=== PATIENT | male | born 1980 | race African-American/Black ===

== ENCOUNTER 2017-10-07 14:23 | Inpatient (IN) ==
[2017-10-07 15:34] LABS: Apearance,Urine CLEAR (Clear); Bilirubin,Urine Negative (Negative); Blood, Urine Negative (Negative); Glucose,Urine (UA) Negative (Negative); Ketones,Urine 5 mg/dL (Negative); Mucus,Urine Occasional /LPF (Occasional); Nitrite,Urine Negative (Negative); Protein,Urine Negative; RBC,Urine 1 /HPF (0-4); Squamous Epithelial Cell,Urine Occasional /HPF (0-10); Urine Color Yellow (Yellow); Urine Specific Gravity 1.012 (1.001-1.035); Urine Urobilinogen < 2.0 EU/DL (0.2-1.0); WBC,Urine 51 /HPF (0-6)
[2017-10-07 16:51] LABS: Basophils % 0.1 % (0.0-0.8); Eosinophils % 0.1 % (0.00-10.9); Hematocrit 43.8 VOL% (42.0-52.0); Hemoglobin 14.9 GM/DL (14.0-18.0); Immature Granulocytes % 0.3 %; Immature Granulocytes Absolute 0.03 #; Lymphocytes # 1.2 10*3/uL (1.4-4.0); Lymphocytes % 12.3 % (21.2-54.2); Mean Corpuscular Hemoglobin 31 PG (27-34); Mean Corpuscular Volume 92.2 FL (87-102); Mean Platelet Volume 10.7 FL (9.6-12.0); Monocytes # 0.9 10*3/uL (0.11-0.8); Monocytes % 8.6 % (1.7-12.7); Neutrophils # 7.8 10*3/uL (1.4-7.4); Neutrophils % 78.6 % (38.7-73.9); Platelet Count 250 T/CUMM (130-400); Red Blood Count 4.75 MC/CUMM (3.8-5.5); Red Cell Distribution Width 15.1 % (9.3-17.3); White Blood Count 9.9 T/CUMM (4-12)
[2017-10-07 17:15] LABS: Albumin 3.8 G/DL (3.4-5.0); Bilirubin,Total 0.6 MG/DL (0.2-1.0); Lactic Acid 1.2 MMOL/L (0.4-2.0); Osmolality,Calculated 273.7 MOS/KG (273-304); Potassium 4.7 MMOL/L (3.5-5.1); Total Protein 8.1 G/DL (6.4-8.3)
[2017-10-07] MEDS ORDERED: cefTRIAXone 1,000 MG in SODIUM CHLORIDE 0.9% 100 ML IV STA (17:31)
[2017-10-07] MEDS ORDERED: MORPHINE 4 MG/1 ML VIAL IV STA (20:00)
[2017-10-07] MEDS ORDERED: ONDANSETRON 4 MG/2 ML VIAL IV PRN (20:51)
[2017-10-07] MEDS ORDERED: PROMETHAZINE 25 MG/1 ML VIAL IM PRN (20:51)
[2017-10-07] MEDS ORDERED: MORPHINE 4 MG/1 ML VIAL IV PRN (20:51)
[2017-10-07] MEDS: ENOXAPARIN 40 MG/0.4 ML SYRINGE SUBCUT SCH (21:46)
[2017-10-07] MEDS: SODIUM CHLORIDE 0.9% 1,000 ML IV SCH (21:46)
[2017-10-07] MEDS: metroNIDAZOLE INJ 500 MG in PREMIX 1 EACH IV SCH (21:46)
[2017-10-07] MEDS: METOPROLOL TARTRATE 50 MG TABLET PO SCH (21:47)
[2017-10-07] MEDS: ROSUVASTATIN 20 MG TABLET PO SCH (21:47)
[2017-10-08] MEDS: metroNIDAZOLE INJ 500 MG in PREMIX 1 EACH IV SCH ×3 (04:56→21:55)
[2017-10-08 06:00] LABS: Basophils % 0.2 % (0.0-0.8); Hematocrit 39.2 VOL% (42.0-52.0); Hemoglobin 13.9 GM/DL (14.0-18.0); Immature Granulocytes % 0.4 %; Immature Granulocytes Absolute 0.04 #; Lymphocytes # 1.7 10*3/uL (1.4-4.0); Lymphocytes % 15.7 % (21.2-54.2); Mean Corpuscular HGB Conc 35.5 GM/DL (32-36); Mean Corpuscular Hemoglobin 32 PG (27-34); Mean Corpuscular Volume 90.7 FL (87-102); Mean Platelet Volume 11.5 FL (9.6-12.0); Monocytes # 0.9 10*3/uL (0.11-0.8); Monocytes % 8.5 % (1.7-12.7); Neutrophils # 8.3 10*3/uL (1.4-7.4); Neutrophils % 75.2 % (38.7-73.9); Platelet Count 232 T/CUMM (130-400); Red Blood Count 4.32 MC/CUMM (3.8-5.5); Red Cell Distribution Width 14.9 % (9.3-17.3)
[2017-10-08] MEDS: CLOPIDOGREL 75 MG TABLET PO SCH (09:51)
[2017-10-08] MEDS: PANTOPRAZOLE 40 MG TABLET PO SCH (09:51)
[2017-10-08] MEDS: ASPIRIN EC 81 MG TABLET PO SCH (09:51)
[2017-10-08] MEDS: METOPROLOL TARTRATE 50 MG TABLET PO SCH ×2 (09:51→20:53)
[2017-10-08] MEDS: CIPROFLOXACIN INJ 400 MG in PREMIX 1 EACH IV SCH ×2 (09:51→20:53)
[2017-10-08] MEDS: LOSARTAN 25 MG TABLET PO SCH (09:51)
[2017-10-08] MEDS: SODIUM CHLORIDE 0.9% 1,000 ML IV SCH ×3 (09:52→20:19)
[2017-10-08] MEDS: ENOXAPARIN 40 MG/0.4 ML SYRINGE SUBCUT SCH (20:52)
[2017-10-08] MEDS: ROSUVASTATIN 20 MG TABLET PO SCH (20:53)
[2017-10-09] MEDS: SODIUM CHLORIDE 0.9% 1,000 ML IV SCH ×3 (01:35→15:56)
[2017-10-09] MEDS: metroNIDAZOLE INJ 500 MG in PREMIX 1 EACH IV SCH ×3 (04:44→23:01)
[2017-10-09 07:13] LABS: Basophils % 0.2 % (0.0-0.8); Eosinophils % 0.3 % (0.00-10.9); Hematocrit 36.2 VOL% (42.0-52.0); Hemoglobin 12.4 GM/DL (14.0-18.0); Immature Granulocytes % 0.2 %; Immature Granulocytes Absolute 0.01 #; Lymphocytes # 1.2 10*3/uL (1.4-4.0); Lymphocytes % 19.7 % (21.2-54.2); Mean Corpuscular HGB Conc 34.3 GM/DL (32-36); Mean Corpuscular Hemoglobin 32 PG (27-34); Mean Corpuscular Volume 92.1 FL (87-102); Mean Platelet Volume 11.1 FL (9.6-12.0); Monocytes # 0.7 10*3/uL (0.11-0.8); Monocytes % 11.9 % (1.7-12.7); Neutrophils # 4.2 10*3/uL (1.4-7.4); Neutrophils % 67.7 % (38.7-73.9); Platelet Count 199 T/CUMM (130-400); Red Blood Count 3.93 MC/CUMM (3.8-5.5); Red Cell Distribution Width 14.5 % (9.3-17.3); White Blood Count 6.2 T/CUMM (4-12)
[2017-10-09 07:43] LABS: Calcium 7.9 MG/DL (8.5-10.1); Osmolality,Calculated 276.4 MOS/KG (273-304); Potassium 3.7 MMOL/L (3.5-5.1)
[2017-10-09] MEDS: ASPIRIN EC 81 MG TABLET PO SCH (09:29)
[2017-10-09] MEDS: CIPROFLOXACIN INJ 400 MG in PREMIX 1 EACH IV SCH ×2 (09:29→23:58)
[2017-10-09] MEDS: LOSARTAN 25 MG TABLET PO SCH (09:30)
[2017-10-09] MEDS: METOPROLOL TARTRATE 50 MG TABLET PO SCH ×2 (09:30→21:45)
[2017-10-09] MEDS: CLOPIDOGREL 75 MG TABLET PO SCH (09:30)
[2017-10-09] MEDS: PANTOPRAZOLE 40 MG TABLET PO SCH (09:30)
[2017-10-09] MEDS: ROSUVASTATIN 20 MG TABLET PO SCH (21:45)
[2017-10-09] MEDS: ENOXAPARIN 40 MG/0.4 ML SYRINGE SUBCUT SCH (21:45)
[2017-10-10] MEDS: metroNIDAZOLE INJ 500 MG in PREMIX 1 EACH IV SCH ×2 (05:12→14:08)
[2017-10-10] MEDS: SODIUM CHLORIDE 0.9% 1,000 ML IV SCH ×2 (07:23→15:20)
[2017-10-10] MEDS ORDERED: hydroCHLOROthiazide 12.5 MG CAPSULE PO SCH (09:00)
[2017-10-10] MEDS: ASPIRIN EC 81 MG TABLET PO SCH (09:30)
[2017-10-10] MEDS: CLOPIDOGREL 75 MG TABLET PO SCH (09:30)
[2017-10-10] MEDS: CIPROFLOXACIN INJ 400 MG in PREMIX 1 EACH IV SCH (09:30)
[2017-10-10] MEDS: METOPROLOL TARTRATE 50 MG TABLET PO SCH (09:30)
[2017-10-10] MEDS: PANTOPRAZOLE 40 MG TABLET PO SCH (09:30)
[2017-10-10] MEDS: LOSARTAN 25 MG TABLET PO SCH (09:30)
[2017-10-10 12:39] VITALS: BP 139/94
== END 2017-10-10 14:03 | disposition home or self-care (01) | DRG 392 ==
LOC: N.ED 14:23 → N.EDINP 19:53 → SUATTDRO 19:53 → N.5E 20:44
PROVIDERS: ADMIT Internal Medicine Infectious Disease; ATTEND Internal Medicine

== ENCOUNTER 2020-02-16 03:52 | Inpatient (IN) ==
[2020-02-16] MEDS ORDERED: ASPIRIN 325 MG TABLET PO STA ×2 (04:03→04:07)
[2020-02-16] MEDS ORDERED: NITROGLYCERIN 2% OINT 1 INCH/GM PACK TOP STA (04:17)
[2020-02-16 05:04] LABS: Basophils % 0.4 % (0.0-0.8); Eosinophils % 0.3 % (0.00-10.9); Hematocrit 40.5 VOL% (42.0-52.0); Immature Granulocytes % 0.3 %; Immature Granulocytes Absolute 0.03 #; Lymphocytes # 1.3 10*3/uL (1.4-4.0); Lymphocytes % 14.5 % (21.2-54.2); Mean Corpuscular HGB Conc 34.6 GM/DL (32-36); Mean Corpuscular Volume 92.5 FL (87-102); Mean Platelet Volume 10.5 FL (9.6-12.0); Neutrophils % 75.5 % (38.7-73.9); Platelet Count 226 T/CUMM (130-400); Red Blood Count 4.38 MC/CUMM (3.8-5.5); Red Cell Distribution Width 14.6 % (9.3-17.3); White Blood Count 9.2 T/CUMM (4-12)
[2020-02-16 05:12] LABS: Alanine Aminotransferase 27 U/L (16-61); Albumin 4.2 G/DL (3.4-5.0); Alkaline Phosphatase 61 U/L (45-117); Aspartate Amino Transferase 21 U/L (0-37); Bilirubin,Total < 0.39 MG/DL (0.2-1.0); Blood Urea Nitrogen 11 MG/DL (7-18); Calcium 9.1 MG/DL (8.5-10.1); Estimated Glom Filtration Rate 157 ML/MIN; Glucose 105 MG/DL (74-106); Osmolality,Calculated 275.5 MOS/KG (273-304); Total Protein 8.2 G/DL (6.4-8.3)
[2020-02-16] MEDS ORDERED: POTASSIUM CHLORIDE 20 MEQ/15 ML UDCUP PO ONE (05:17)
[2020-02-16] MEDS ORDERED: NITROGLYCERIN SL 0.4 MG TABLET SL PRN (05:37)
[2020-02-16] MEDS ORDERED: ALUMINUM/MAGNES/SIMETH MAX STR 30 ML UDCUP PO PRN (05:37)
[2020-02-16] MEDS ORDERED: hydrALAZINE 20 MG/1 ML VIAL IV PRN (05:37)
[2020-02-16] MEDS ORDERED: DOCUSATE SODIUM 100 MG CAPSULE PO PRN (05:37)
[2020-02-16] MEDS ORDERED: ACETAMINOPHEN 325 MG TABLET PO PRN (05:37)
[2020-02-16] MEDS ORDERED: ONDANSETRON 4 MG/2 ML VIAL IV PRN (05:37)
[2020-02-16] MEDS ORDERED: MORPHINE 4 MG/1 ML VIAL IV PRN (05:37)
[2020-02-16] MEDS ORDERED: MORPHINE 4 MG/1 ML VIAL IV STA (06:10)
[2020-02-16] MEDS ORDERED: ENOXAPARIN 80 MG/0.8 ML SYRINGE SUBCUT ONE (06:30)
[2020-02-16 06:32] LABS: Barbiturates Screen,Urine Negative (Negative); Benzodiazepines Screen,Urine Negative (Negative); Cannabinoid Screen,Urine Positive (Negative); Opiate Screen,Urine Negative (Negative); Phencyclidine Screen,Urine Negative (Negative)
[2020-02-16] MEDS ORDERED: KETOROLAC 30 MG/1 ML VIAL IV ONE (07:41)
[2020-02-16] MEDS ORDERED: METOPROLOL TARTRATE 50 MG TABLET PO SCH (09:00)
[2020-02-16] MEDS: LOSARTAN 50 MG TABLET PO SCH (09:01)
[2020-02-16] MEDS: amLODIPine 10 MG TABLET PO SCH (09:01)
[2020-02-16] MEDS: CLOPIDOGREL 75 MG TABLET PO SCH (09:01)
[2020-02-16] MEDS: ASPIRIN EC 81 MG TABLET PO SCH (09:07)
[2020-02-16] MEDS: PANTOPRAZOLE 40 MG TABLET PO SCH (09:07)
[2020-02-16] MEDS ORDERED: METOPROLOL TARTRATE 50 MG TABLET PO ONE (10:12)
[2020-02-16] MEDS: hydroCHLOROthiazide 25 MG TABLET PO SCH (11:30)
[2020-02-16] MEDS: ISOSORBIDE MONONITRATE 30 MG TABLET PO SCH (11:30)
[2020-02-16 17:09] LABS: CKMB % 10.7 %
[2020-02-16 17:16] LABS: Troponin I 27.3 NG/ML (0.00-0.045)
[2020-02-16] MEDS: ROSUVASTATIN 20 MG TABLET PO SCH (21:06)
[2020-02-16] MEDS: METOPROLOL TARTRATE 100 MG TABLET PO SCH (21:07)
[2020-02-16] MEDS: ENOXAPARIN 150 MG/ML SYRINGE SUBCUT SCH (21:07)
[2020-02-16 23:24] LABS: CKMB % 9.5 %
[2020-02-16 23:28] LABS: Troponin I 39.1 NG/ML (0.00-0.045)
[2020-02-17 04:18] LABS: Basophils % 0.1 % (0.0-0.8); Eosinophils % 0.3 % (0.00-10.9); Hematocrit 42.5 VOL% (42.0-52.0); Hemoglobin 14.8 GM/DL (14.0-18.0); Immature Granulocytes % 0.4 %; Immature Granulocytes Absolute 0.03 #; Lymphocytes # 1.9 10*3/uL (1.4-4.0); Lymphocytes % 26.1 % (21.2-54.2); Mean Corpuscular HGB Conc 34.8 GM/DL (32-36); Mean Corpuscular Volume 91.6 FL (87-102); Mean Platelet Volume 10.3 FL (9.6-12.0); Monocytes % 11.2 % (1.7-12.7); Neutrophils % 61.9 % (38.7-73.9); Platelet Count 232 T/CUMM (130-400); Red Blood Count 4.64 MC/CUMM (3.8-5.5); Red Cell Distribution Width 14.2 % (9.3-17.3); White Blood Count 7.2 T/CUMM (4-12)
[2020-02-17 04:50] LABS: Risk Ratio 2.74; Thyroid Stimulating Hormone 0.54 uIU/ml (0.358-3.74); VLDL CHOLESTEROL 17.6 MG/DL
[2020-02-17] MEDS ORDERED: POTASSIUM CHLORIDE 20 MEQ TABLET PO ONE (06:37)
[2020-02-17] MEDS: METOPROLOL TARTRATE 100 MG TABLET PO SCH ×2 (09:44→21:03)
[2020-02-17] MEDS: LOSARTAN 50 MG TABLET PO SCH (09:44)
[2020-02-17] MEDS: hydroCHLOROthiazide 25 MG TABLET PO SCH (09:44)
[2020-02-17] MEDS: PANTOPRAZOLE 40 MG TABLET PO SCH (09:44)
[2020-02-17] MEDS: amLODIPine 10 MG TABLET PO SCH (09:44)
[2020-02-17] MEDS: ISOSORBIDE MONONITRATE 30 MG TABLET PO SCH (09:44)
[2020-02-17] MEDS: CLOPIDOGREL 75 MG TABLET PO SCH (09:44)
[2020-02-17] MEDS: ASPIRIN EC 81 MG TABLET PO SCH (09:45)
[2020-02-17] MEDS: ENOXAPARIN 150 MG/ML SYRINGE SUBCUT SCH ×2 (09:45→21:03)
[2020-02-17] MEDS ORDERED: MAGNESIUM SULF RIDER 2 GM in PREMIX 1 EACH IV PRN (10:03)
[2020-02-17] MEDS ORDERED: POTASSIUM CHLORIDE RIDER 10 MEQ in PREMIX 1 EACH IV PRN (10:03)
[2020-02-17] MEDS: ROSUVASTATIN 20 MG TABLET PO SCH (21:03)
[2020-02-18 05:48] LABS: Basophils % 0.3 % (0.0-0.8); Eosinophils % 0.4 % (0.00-10.9); Hematocrit 44.1 VOL% (42.0-52.0); Hemoglobin 15.2 GM/DL (14.0-18.0); Immature Granulocytes % 0.3 %; Immature Granulocytes Absolute 0.02 #; Lymphocytes # 2.5 10*3/uL (1.4-4.0); Lymphocytes % 35.6 % (21.2-54.2); Mean Corpuscular HGB Conc 34.5 GM/DL (32-36); Mean Corpuscular Volume 92.5 FL (87-102); Mean Platelet Volume 10.6 FL (9.6-12.0); Monocytes % 15.2 % (1.7-12.7); Neutrophils % 48.2 % (38.7-73.9); Platelet Count 223 T/CUMM (130-400); Red Blood Count 4.77 MC/CUMM (3.8-5.5); Red Cell Distribution Width 14.2 % (9.3-17.3)
[2020-02-18] MEDS ORDERED: SODIUM CHLORIDE 0.45% 1,000 ML IV SCH (06:00)
[2020-02-18 06:17] LABS: Calcium 9.2 MG/DL (8.5-10.1)
[2020-02-18 06:19] LABS: Calcium 9.2 MG/DL (8.5-10.1)
[2020-02-18] MEDS ORDERED: diphenhydrAMINE CAP 50 MG CAPSULE PO ONE (07:28)
[2020-02-18] MEDS ORDERED: DIAZEPAM 5 MG TABLET PO ONE (07:28)
[2020-02-18] MEDS: ASPIRIN EC 81 MG TABLET PO SCH ×2 (07:39→08:23)
[2020-02-18] MEDS: CLOPIDOGREL 75 MG TABLET PO SCH ×2 (07:39→08:24)
[2020-02-18] MEDS: POTASSIUM CHLORIDE 20 MEQ TABLET PO PRN (07:40)
[2020-02-18] MEDS: PANTOPRAZOLE 40 MG TABLET PO SCH ×2 (07:40→08:24)
[2020-02-18] MEDS: METOPROLOL TARTRATE 100 MG TABLET PO SCH ×3 (07:40→20:34)
[2020-02-18] MEDS ORDERED: POTASSIUM CHLORIDE 20 MEQ TABLET PO ONE (07:45)
[2020-02-18] MEDS: LOSARTAN 50 MG TABLET PO SCH (08:23)
[2020-02-18] MEDS: hydroCHLOROthiazide 25 MG TABLET PO SCH (08:23)
[2020-02-18] MEDS: ISOSORBIDE MONONITRATE 30 MG TABLET PO SCH (08:24)
[2020-02-18] MEDS: amLODIPine 10 MG TABLET PO SCH (08:24)
[2020-02-18] MEDS ORDERED: HEPARIN/NACL 0.9% 2 UNITS/ML 1,000 ML IV ONE (08:39)
[2020-02-18] MEDS ORDERED: LIDOCAINE 1%/EPI INJ 20 ML VIAL ONE (08:39)
[2020-02-18] MEDS ORDERED: MIDAZOLAM 2 MG/2 ML VIAL ONE (08:46)
[2020-02-18] MEDS ORDERED: fentaNYL 100 MCG/2 ML VIAL ONE (08:46)
[2020-02-18] MEDS ORDERED: TIROFIBAN 5,000 MCG/100 ML PREMIX IV ONE (09:17)
[2020-02-18] MEDS ORDERED: ENOXAPARIN 30 MG/0.3 ML SYRINGE ONE (09:21)
[2020-02-18] MEDS ORDERED: ENOXAPARIN 60 MG/0.6 ML SYRINGE ONE (09:21)
[2020-02-18] MEDS ORDERED: TIROFIBAN 5,000 MCG/100 ML PREMIX IV SCH (09:33)
[2020-02-18] MEDS ORDERED: TICAGRELOR 90 MG TABLET ONE (09:41)
[2020-02-18] MEDS: ROSUVASTATIN 20 MG TABLET PO SCH (20:34)
[2020-02-19 02:28] LABS: Basophils % 0.8 % (0.0-0.8); Eosinophils % 0.4 % (0.00-10.9); Hematocrit 43.8 VOL% (42.0-52.0); Hemoglobin 15.4 GM/DL (14.0-18.0); Immature Granulocytes % 0.4 %; Immature Granulocytes Absolute 0.02 #; Lymphocytes # 1.7 10*3/uL (1.4-4.0); Lymphocytes % 31.9 % (21.2-54.2); Mean Corpuscular HGB Conc 35.2 GM/DL (32-36); Mean Corpuscular Volume 90.1 FL (87-102); Monocytes % 13.9 % (1.7-12.7); Neutrophils % 52.6 % (38.7-73.9); Platelet Count 206 T/CUMM (130-400); Red Blood Count 4.86 MC/CUMM (3.8-5.5); White Blood Count 5.2 T/CUMM (4-12)
[2020-02-19 02:46] LABS: Osmolality,Calculated 273.8 MOS/KG (273-304)
[2020-02-19 08:11] VITALS: BP 122/83
[2020-02-19] MEDS ORDERED: PRASUGREL 10 MG TABLET PO SCH (09:00)
[2020-02-19] MEDS: hydroCHLOROthiazide 25 MG TABLET PO SCH (09:17)
[2020-02-19] MEDS: POTASSIUM CHLORIDE 20 MEQ TABLET PO PRN (09:18)
[2020-02-19] MEDS: ASPIRIN EC 81 MG TABLET PO SCH (09:18)
[2020-02-19] MEDS: METOPROLOL TARTRATE 100 MG TABLET PO SCH (09:18)
[2020-02-19] MEDS: ISOSORBIDE MONONITRATE 30 MG TABLET PO SCH (09:18)
[2020-02-19] MEDS: LOSARTAN 50 MG TABLET PO SCH (09:18)
[2020-02-19] MEDS: PANTOPRAZOLE 40 MG TABLET PO SCH (09:18)
[2020-02-19] MEDS: amLODIPine 10 MG TABLET PO SCH (09:18)
== END 2020-02-19 13:44 | disposition home or self-care (01) | DRG 247 ==
LOC: N.ED 03:52 → N.EDINP 03:52 → SUATTDRO 05:36 → N.EDINP 06:28 → N.TELES 06:44
PROVIDERS: ADMIT Internal Medicine; ATTEND Internal Medicine
PROC: CLCCHCL (ICD-10-PCS; 2020-02-18 10:15)